=== PATIENT | female | born 1990 | race Hispanic/Latino ===

== ENCOUNTER 2017-03-18 09:41 | Emergency (ER) | payer MEDICAID, OTHER ==
[2017-03-18 09:41] VITALS: BMI 44.1
[2017-03-18 09:58] VITALS: TEMP 98.6
--- NOTE | 2017-03-18 10:22 | ED PDOC ---
Arrival/HPI - General Chief Complaint: Female Genitourinary Time Seen by Provider: 03/18/17 09:53 Historian: Patient - History of Present Illness Narrative History of Present Illness (Text): 03/18/17 10:23 A 26 year old female, whose past medical history includes right ovarian cyst, and metrorrhagia, presents to the emergency department complaining of irregular period, heavy bleeding since 02/18/17 with intermittent feeling of lightheadedness and nausea. Reports blood clots, which have gotten smaller. Patient denies any shortness of breath, chest pain, dyspnea on exertion or any other complaints at this time. MANAGER OF INVESTIGATIONS: Dr Rossi ([place]) Symptom Onset: Sudden Symptom Course: Unchanged Activities at Onset: Rest Context: Home Past Medical History - Provider Review Nursing Documentation Reviewed: Yes - Infectious Disease Hx of Infectious Diseases: None - Tetanus Immunization Tetanus Immunization: Unknown - Past Medical History Past Medical History: No Previous - Cardiac Hx Cardiac Disorders: Yes Hx Hypertension: Yes Hx Pacemaker: No - Neurological Hx Paralysis: No - Hematological/Oncological Hx Blood Transfusions: No - Musculoskeletal/Rheumatological Hx Musculoskeletal Disorders: No - Psychiatric Hx Emotional Abuse: No Hx Physical Abuse: No Hx Substance Use: No - Surgical History Hx Tonsillectomy: Yes - Anesthesia Hx Anesthesia: Yes Hx Anesthesia Reactions: No Hx Malignant Hyperthermia: No - Suicidal Assessment Feels Threatened In Home Enviroment: No Family/Social History - Physician Review Nursing Documentation Reviewed: Yes Family/Social History: No Known Family HX Smoking Status: Never Smoked Hx Alcohol Use: Yes (OCCASIONAL) Hx Substance Use: No Hx Substance Use Treatment: No Allergies/Home Meds Allergies/Adverse Reactions: Allergies sulfamethoxazole [From Bactrim] Allergy (Severe, Verified 03/18/17 09:58) RASH trimethoprim [From Bactrim] Allergy (Severe, Verified 03/18/17 09:58) RASH amoxicillin Allergy (Verified 03/18/17 09:58) ANAPHYLAXIS clarithromycin [From Biaxin] Allergy (Verified 03/18/17 09:58) ANAPHYLAXIS erythromycin base Adverse Reaction (Verified 03/18/17 09:58) ANAPHYLAXIS Penicillins Adverse Reaction (Verified 03/18/17 09:58) ANAPHYLAXIS Home Medications: Home Meds Medication Instructions Recorded Confirmed No Known Home Med 03/18/17 03/18/17 Review of Systems - Physician Review All systems were reviewed & negative as marked: Yes - Review of Systems Constitutional: Other (lightheadedness) Respiratory: absent: SOB Cardiovascular: absent: Chest Pain, LEON Gastrointestinal: Nausea Genitourinary Female: Other (heavy bleeding) Physical Exam - Physical Exam Narrative Physical Exam (Text): 03/18/17 10:21 - Review of Systems Constitutional: Lightheadedness absent: Fatigue, Weight Change, Fevers Eyes: Normal ENT: Normal Respiratory: Normal absent: SOB, Cough, Sputum Cardiovascular: Normal absent: Chest pain, Palpitations, Syncope Gastrointestinal: Nausea absent: Abdominal pain, Diarrhea, Vomiting Genitourinary: Heavy bleeding. absent: Dysuria, Frequency Musculoskeletal: Normal. absent: Arthralgias, Back Pain, Neck Pain Skin: Normal Neurological: Normal absent: Focal Weakness Endocrine: Normal Hemo/Lymphatic: Normal Psychiatric: Normal - Physical exam Patient appears age appropriate, speaking full sentences without difficulty - Systems Exam Head: Present: Atraumatic, Normocephalic Pupils: Present: PERRL Extraocular Muscles: Present: EOMI Conjunctiva: Present: Normal Mouth: Present: Moist Mucous Membranes Neck: Present: Normal Range of Motion. No: MIDLINE TENDERNESS, Paraspinal Tenderness Respiratory/Chest: Present: Clear to Auscultation, Good Air Exchange. No: Respiratory Distress, Accessory Muscle Use, Tachypnic Cardiovascular: Present: Regular Rate and Rhythm, Normal S1, S2, Peripheral Pulses Present. No: Murmurs Abdomen: Present: Normal Bowel Sounds, No: Tenderness, Peritoneal Signs, Rebound, Guarding, Distention Back: Present: Normal Inspection. No: Midline Tenderness, Paraspinal Tenderness Upper Extremity: Present: Normal Inspection. No: Cyanosis, Edema Lower Extremity: Present: Normal Inspection. No: Edema Neurological: Present: GCS=15, Speech Normal, cranial nerves II through XII fully intact with no cerebellar abnormality, neuro-sensory fully intact. No focal neurological deficits. Skin: Present: Warm, Dry, Normal Color. No: Rashes Lymphatic: Present: OX3, NI, NC Psychiatric: Present: Alert, Oriented x 3, Normal Insight, Normal Concentration Vital Signs Reviewed: Yes Vital Signs Temp Pulse Resp BP Pulse Ox 03/18/17 09:54 98.6 F 138 H 20 134/85 97 Temperature: Afebrile Blood Pressure: Normal Pulse: Tachycardic Respiratory Rate: Normal Appearance: Positive for: Well-Appearing, Non-Toxic, Comfortable Pain Distress: None Mental Status: Positive for: Alert and Oriented X 3 Medical Decision Making ED Course and Treatment: 03/18/17 10:19 Impression: A 26 year old female with irregular period and clots. No acute findings on physical exam. Differential Diagnosis included but are not limited to: anemia vs. metrorrhagia Plan: -- labs -- Urinalysis -- Reassess and disposition Prior Visits: Notes and results from previous visits were reviewed. Patient was last seen in the emergency department on 03/13/16 for evaluation of bilateral headache. Progress Notes: 03/18/17 12:08 no acute findings on labs, Hb stable pt states she will set up outpatient f/u with MANAGER OF INVESTIGATIONS pt states she feels comfortable being dc'd home at this time denies cp/sob/leon Pt states she understands to return to the ER right away for new or worsening symptoms or for inability to f/u with PMD or specialist as instructed. Patient states that she fully agrees with and understands discharge instructions. States that she agrees with the plan and disposition. Verbalized and repeated discharge instructions and plan. I have given the patient opportunity to ask any additional questions. 03/18/17 12:18 tachycardia resolved without intervention - Lab Interpretations Lab Results: 03/18/17 10:40 03/18/17 10:40 Lab Results 03/18/17 10:40: Blood Type A NEGATIVE, Antibody Screen Negative, BBK History Checked No verified bt 03/18/17 10:40: Thyroxine (T4) 8.9, Total T3 1.86 H, TSH 3rd Generation 2.34 03/18/17 10:40: Sodium 142, Potassium 4.0, Chloride 99, Carbon Dioxide 29, Anion Gap 18, BUN 9, Creatinine 0.7, Est GFR ( Amer) > 60, Est GFR (Non- Af Amer) > 60, Random Glucose 110, Calcium 9.8, Total Bilirubin 0.5, AST 29, ALT 35, Alkaline Phosphatase 100, Total Protein 8.5 H, Albumin 4.7, Globulin 3.8 , Albumin/Globulin Ratio 1.2 03/18/17 10:40: Urine Color Red, Urine Appearance Cloudy, Urine pH 7.5, Ur Specific Keyes 1.015, Urine Protein 100 H, Urine Glucose (UA) Negative, Urine Ketones Negative, Urine Blood Large H, Urine Nitrate Negative, Urine Bilirubin Negative, Urine Urobilinogen 1.0 H, Ur Leukocyte Esterase Trace H, Urine RBC Tntc, Urine WBC 0 - 2, Ur Epithelial Cells 4 - 5, Urine Bacteria Trace 03/18/17 10:40: PT 10.8, INR 1.00, APTT 29.5 03/18/17 10:40: WBC 9.8, RBC 4.94, Hgb 14.3, Hct 41.8, MCV 84.6, MCH 28.9, MCHC 34.2, RDW 13.5, Plt Count 266, MPV 10.6, Gran % 69.5 H, Lymph % (Auto) 22.7, Sebastian % (Auto) 6.8 H, Eos % (Auto) 0.9 L, Baso % (Auto) 0.1, Gran # 6.78 H, Lymph # 2.2, Sebastian # 0.7 H, Eos # 0.1, Baso # 0.01 I have reviewed the lab results: Yes - Scribe Statement The provider has reviewed the documentation as recorded by the Shayan Bhakta Provider Scribe Attestation: All medical record entries made by the Shayan were at my direction and personally dictated by me. I have reviewed the chart and agree that the record accurately reflects my personal performance of the history, physical exam, medical decision making, and the department course for this patient. I have also personally directed, reviewed, and agree with the discharge instructions and disposition. Disposition/Present on Arrival - Present on Arrival Any Indicators Present on Arrival: No History of DVT/PE: No History of Uncontrolled Diabetes: No Urinary Catheter: No History of Decub. Ulcer: No History Surgical Site Infection Following: None - Disposition Have Diagnosis and Disposition been Completed?: Yes Diagnosis: Vaginal bleeding Disposition: HOME/ ROUTINE Disposition Time: 12:17 Patient Plan: Discharge Patient Problems: Current Active Problems Problem Status Onset Vaginal bleeding Acute Condition: GOOD Discharge Instructions (ExitCare): Dysfunctional Uterine Bleeding (ED) Additional Instructions: PLEASE RETURN TO THE EMERGENCY DEPARTMENT FOR NEW OR WORSENING SYMPTOMS. RETURN RIGHT AWAY IF YOU CANNOT FOLLOW UP WITH YOUR PRIMARY CARE DOCTOR, CLINIC, OR SPECIALIST IN 1-2 DAYS. Referrals: PCP,NO [Primary Care Provider] - Follow up with primary Darrian Conley [Medical Doctor] - Follow up with primary
[2017-03-18 10:52] LABS: BASO # 0.01 K/mm3 (0.0-2.0); BASO % 0.1 % (0.0-3.0); EOS # 0.1 (0.0-0.7); EOS % 0.9 % (1.5-5.0); GRAN # 6.78 (1.4-6.5); GRAN % 69.5 % (50.0-68.0); HEMOGLOBIN 14.3 gm/dL (12.0-16.0); LYMPH # 2.2 (1.2-3.4); LYMPH % 22.7 % (22.0-35.0); MEAN CELL VOLUME 84.6 fL (80.0-105.0); MEAN CORPUSCULAR HEMOGLOBIN 28.9 pg (25.0-35.0); MEAN CORPUSCULAR HGB CONC 34.2 g/dl (31.0-37.0); MEAN PLATELET VOLUME 10.6 fl (7.0-11.0); MONO # 0.7 (0.1-0.6); MONO % 6.8 % (1.0-6.0); PH,URINE 7.5 (4.7-8.0); PLATELET COUNT 266 10^3/uL (120.0-450.0); RBC 4.94 10^6/uL (3.5-6.1); RED CELL DISTRIBUTION WIDTH 13.5 % (11.5-14.5); URINE APPEARANCE CLOUDY (CLEAR); URINE BILIRUBIN NEGATIVE (NEGATIVE); URINE BLOOD LARGE (NEGATIVE); URINE COLOR RED (YELLOW); URINE GLUCOSE (UA) NEGATIVE (NEGATIVE); URINE LEUKOCYTE ESTERASE TRACE Leu/uL (NEGATIVE); URINE NITRATE NEGATIVE (NEGATIVE); URINE PROTEIN 100 mg/dL (<30 mg/dL); WHITE BLOOD COUNT 9.8 10^3/ul (4.5-11.0)
[2017-03-18 11:00] LABS: URINE RBC TNTC /hpf (0-2); URINE WBC 0 - 2 /hpf (0-6)
[2017-03-18 11:01] LABS: ALB/GLOB RATIO 1.2 (1.1-1.8); ALBUMIN 4.7 g/dL (3.0-4.8); ALT/SGPT 35 U/L (7-56); AST/SGOT 29 U/L (15-39); BLOOD UREA NITROGEN 9 mg/dL (7-21); CALCIUM 9.8 mg/dL (8.4-10.5); GFR AFRICAN-AMERICAN > 60; GFR NON-AFRICAN AMERICAN > 60; URINE BACTERIA TRACE (NEG)
[2017-03-18 11:03] LABS: PARTIAL THROMBOPLASTIN TIME 29.5 Seconds (23.7-30.8); PROTHROMBIN TIME 10.8 Seconds (9.9-11.8)
[2017-03-18 11:18] LABS: T4 8.9 ug/dL (5.5-11.0)
[2017-03-18 11:32] LABS: T3 1.86 ng/mL (0.97-1.69)
[2017-03-18 12:13] VITALS: BP 124/89; PULSE 100; RESP 18; O2SAT 98
== END 2017-03-18 12:25 | disposition home or self-care (01) ==
LOC: ED 09:41
DX: N93.9 Abnormal uterine and vaginal bleeding, unspecified (principal)

== ENCOUNTER 2017-04-03 20:22 | Emergency (ER) | payer MEDICAID, OTHER ==
[2017-04-03 20:44] VITALS: BMI 45.3
[2017-04-03] MEDS ORDERED: TDAP Vaccine 0.5 mL Syr IM ONE (21:18)
[2017-04-03] MEDS ORDERED: Lidocaine 1% Inj (20ml) ONE (22:19)
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
[2017-04-04 01:10] VITALS: RESP 18
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
[2017-04-04 01:15] VITALS: BP 136/84; PULSE 88; TEMP 98.5
[2017-04-04 01:24] VITALS: O2SAT 98
--- NOTE | 2017-04-04 02:20 | PCM.PROC ---
Procedures Attestation:: I certify that I have explained the specified Operation(s) or Procedure(s), risks, benefits and reasonable alternatives to the Patient and/or other person responsible. The opportunity was given to ask questions and all questions answered - Laceration other Site: upper extremity Side (if applicable): right Size (cm): 5 Description: linear (linear with L shaped hook at the medial end), flap, irregular, clean Depth: simple, single layer Anesthesia used: lidocaine 1% Anesthesia technique: local infiltration Amount (mLs): 12 Pre-repair: wound explored, irrigated extensively (with normal saline, prepared with betadine swab), deep structures intact Skin layer closed with: other (ethilon) Size: 4-0 Number of sutures: 7 Technique: simple, interrupted Subcutaneous layer closed with: other (monocryl) Size: 4-0 Number of sutures: 5 Technique: simple, interrupted right upper extremity Site: upper extremity Side (if applicable): right Size (cm): 5 Description: flap Depth: simple, single layer Anesthesia used: lidocaine 1% Anesthesia technique: local infiltration Amount (mLs): 12 Pre-repair: wound explored, irrigated extensively, deep structures intact Skin layer closed with: other (ethilon) Size: 4-0 Number of sutures: 8 Technique: simple, interrupted Subcutaneous layer closed with: other (monocryl) Size: 4-0 Number of sutures: 6 Technique: simple, interrupted upper extremity Site: upper extremity Side (if applicable): right Size (cm): 3 Description: linear Depth: simple, single layer Anesthesia used: lidocaine 1% Anesthesia technique: local infiltration Amount (mLs): 10 Pre-repair: wound explored, irrigated extensively, deep structures intact Skin layer closed with: other (ethilon) Size: 4-0 Number of sutures: 4 Technique: simple, interrupted Subcutaneous layer closed with: other (monocryl) Size: 4-0 Number of sutures: 3 Technique: simple, interrupted
--- NOTE | 2017-04-04 09:33 | RAD ---
PROCEDURE: Right Hand Radiographs. HISTORY: laceration, palm/wrist COMPARISON: None. FINDINGS: BONES: Normal. No fracture. JOINTS: Normal. No osteoarthritic changes. SOFT TISSUES: Normal. OTHER FINDINGS: None. IMPRESSION: Normal right hand radiographs.
--- NOTE | 2017-04-04 09:34 | RAD ---
PROCEDURE: Radiographs of the Right Forearm HISTORY: lacerations, forearm with glass COMPARISON: None available. TECHNIQUE: Frontal and lateral views obtained. FINDINGS: BONES: No fracture or destructive lesion. JOINT SPACES: Unremarkable. OTHER FINDINGS: None. IMPRESSION: Unremarkable radiographs of the right forearm.
== END 2017-04-04 01:23 | disposition home or self-care (01) ==
LOC: ED 20:22
DX: S61.411A Laceration without foreign body of right hand, initial encounter (principal); S61.511A Laceration without foreign body of right wrist, initial encounter; W25.XXXA Contact with sharp glass, initial encounter; Z23 Encounter for immunization

== ENCOUNTER 2017-06-07 12:48 | Emergency (ER) | payer MEDICAID, OTHER ==
[2017-06-07 12:57] VITALS: BMI 44.1
[2017-06-07 13:18] VITALS: RESP 18
--- NOTE | 2017-06-07 13:32 | ED PDOC ---
Arrival/HPI - General Chief Complaint: Allergic Reaction Time Seen by Provider: 06/07/17 13:08 Historian: Patient - History of Present Illness Narrative History of Present Illness (Text): 06/07/17 13:26 A 27 year old female with no significant past medical history, presents to the emergency department with facial swelling this morning when she woke up. She says she did start to experience some tightness in the throat. The patient states that she took Benadryl and Tylenol for her symptoms and feels better. The swelling is much better and no longer has any itching or tightness in the throat. She notes that she has not eaten anything new or used any new products. The patient's mother states that about 2 weeks ago, the patient started to break out in a rash and she went to visit her old [employer] (Dr. Miller) and was given medication. They followed- up 2 days ago and the doctor told the patient that she had Coxsackie virus. The patient currently denies denies fevers, chills, headache, dizziness, sore throat, cough, chest pain, shortness of breath, dyspnea on exertion, abdominal pain, nausea, vomiting, diarrhea, neck pain, back pain, urinary/bowel changes, or any other complaints. Time/Duration: Other (This Morning) Symptom Onset: Sudden Symptom Course: Improving Activities at Onset: Rest, Light Context: Home Past Medical History - Provider Review Nursing Documentation Reviewed: Yes - Infectious Disease Hx of Infectious Diseases: None - Tetanus Immunization Tetanus Immunization: Unknown - Reproductive Menopause: No - Past Medical History Past Medical History: No Previous - Cardiac Hx Cardiac Disorders: Yes Hx Hypertension: Yes Hx Pacemaker: No - Pulmonary Hx Respiratory Disorders: No - Neurological Hx Paralysis: No - HEENT Hx HEENT Disorder: No - Renal Hx Renal Disorder: No - Endocrine/Metabolic Hx Endocrine Disorders: No - Hematological/Oncological Hx Blood Transfusions: No - Integumentary Hx Dermatological Disorder: No - Musculoskeletal/Rheumatological Hx Musculoskeletal Disorders: No - Gastrointestinal Hx Gastrointestinal Disorders: No - Genitourinary/Gynecological Hx Genitourinary Disorders: No - Psychiatric Hx Emotional Abuse: No Hx Physical Abuse: No Hx Substance Use: No - Surgical History Hx Tonsillectomy: Yes - Anesthesia Hx Anesthesia: Yes Hx Anesthesia Reactions: No Hx Malignant Hyperthermia: No - Suicidal Assessment Feels Threatened In Home Enviroment: No Family/Social History - Physician Review Nursing Documentation Reviewed: Yes Family/Social History: No Known Family HX Smoking Status: Never Smoked Hx Alcohol Use: Yes (OCCASIONAL) Hx Substance Use: No Hx Substance Use Treatment: No Allergies/Home Meds Allergies/Adverse Reactions: Allergies sulfamethoxazole [From Bactrim] Allergy (Severe, Verified 06/07/17 12:58) RASH trimethoprim [From Bactrim] Allergy (Severe, Verified 06/07/17 12:58) RASH amoxicillin Allergy (Verified 06/07/17 12:58) ANAPHYLAXIS clarithromycin [From Biaxin] Allergy (Verified 06/07/17 12:58) ANAPHYLAXIS erythromycin base Adverse Reaction (Verified 06/07/17 12:58) ANAPHYLAXIS Penicillins Adverse Reaction (Verified 06/07/17 12:58) ANAPHYLAXIS Review of Systems - Physician Review All systems were reviewed & negative as marked: Yes - Review of Systems Constitutional: absent: Fevers, Night Sweats ENT: Other (throat tightness earlier, resolved). absent: Sore Throat Respiratory: absent: SOB, Cough Cardiovascular: absent: Chest Pain, GARNETT Gastrointestinal: absent: Abdominal Pain, Stool Changes, Diarrhea, Nausea, Vomiting Genitourinary Female: absent: Urine Output Changes Musculoskeletal: absent: Back Pain, Neck Pain Skin: Rash, Pruritis, Other (Swelling/ Itchiness of the face) Neurological: absent: Headache, Dizziness Physical Exam Vital Signs Reviewed: Yes Vital Signs Temp Pulse Resp BP Pulse Ox 06/07/17 12:58 98.6 F 108 H 18 132/106 H 99 Temperature: Afebrile Blood Pressure: Hypertensive Pulse: Tachycardic Respiratory Rate: Normal Appearance: Positive for: Well-Appearing, Non-Toxic, Comfortable Pain Distress: None Mental Status: Positive for: Alert and Oriented X 3 - Systems Exam Head: Present: Atraumatic, Swelling (Minimal swelling with blanching erythema on the cheeks b/L; no tenderness) Pupils: Present: PERRL Conjunctiva: Present: Normal Mouth: Present: Moist Mucous Membranes Pharnyx: Present: Normal. No: ERYTHEMA, EXUDATE Neck: Present: Normal Range of Motion Respiratory/Chest: Present: Clear to Auscultation, Good Air Exchange. No: Respiratory Distress, Accessory Muscle Use Cardiovascular: Present: Regular Rate and Rhythm, Normal S1, S2. No: Murmurs Abdomen: Present: Normal Bowel Sounds. No: Tenderness, Distention, Peritoneal Signs Back: Present: Normal Inspection Upper Extremity: Present: Normal Inspection. No: Cyanosis, Edema Lower Extremity: Present: Normal Inspection. No: Edema Neurological: Present: GCS=15, CN II-XII Intact, Speech Normal Skin: Present: Warm, Dry, Rashes, Normal Color Psychiatric: Present: Alert, Oriented x 3, Normal Insight, Normal Concentration Medical Decision Making ED Course and Treatment: 06/07/17 13:34 Impression: A 27 year old female presents to the emergency department after waking up this morning and having itching, swelling and erythema to the face with significant improvement after benadryl. Plan: -- Pepcid, Atarax, and predniSONE -- Reassess and disposition Prior Visits: Notes and results from previous visits were reviewed. On 04/03/17, the patient was treated in the emergency department for multiple lacerations to the right hand and wrist. The patient was d/c home on [facility] with referrals to Dr. Reed Gregg and Dr. Sergio Farah. Progress Notes: 06/07/17 13:44 Patient still mild erythematous rash, likely allergic. She no longer has tightness in the throat and oropharyngeal exam is normal with no swelling. Given swelling in the throat - will give steroids and plan to d/c on antihistamine, steroids, and epi-pen. - Medication Orders Current Medication Orders: Discontinued Medications Famotidine (Pepcid) 40 mg PO STAT STA Stop: 06/07/17 13:28 Last Admin: 06/07/17 13:40 Dose: 40 mg Hydroxyzine HCl (Atarax) 25 mg PO ONCE STA Stop: 06/07/17 13:28 Prednisone (Prednisone Tab) 40 mg PO STAT STA Stop: 06/07/17 13:28 Last Admin: 06/07/17 13:40 Dose: 40 mg - Scribe Statement The provider has reviewed the documentation as recorded by the Shayan Weston Provider Scribe Attestation: All medical record entries made by the Scribe were at my direction and personally dictated by me. I have reviewed the chart and agree that the record accurately reflects my personal performance of the history, physical exam, medical decision making, and the department course for this patient. I have also personally directed, reviewed, and agree with the discharge instructions and disposition. Disposition/Present on Arrival - Present on Arrival Any Indicators Present on Arrival: No History of DVT/PE: No History of Uncontrolled Diabetes: No Urinary Catheter: No History of Decub. Ulcer: No History Surgical Site Infection Following: None - Disposition Have Diagnosis and Disposition been Completed?: Yes Diagnosis: Allergic reaction Disposition: HOME/ ROUTINE Disposition Time: 13:50 Patient Plan: Discharge Patient Problems: Current Active Problems Problem Status Onset Allergic reaction Acute Condition: GOOD Discharge Instructions (ExitCare): Anaphylaxis (ED) Additional Instructions: Take the medications as prescribed and follow up with customer service rep and primary care. Return to the emergency department if any new concerning symptoms. Prescriptions: Epinephrine HCl [Epipen Auto-Injector] 0.3 mg MR ONCE PRN #2 syr PRN Reason: Anaphylaxis hydrOXYzine HCl [Atarax] 1 tab PO Q6H PRN #20 tab PRN Reason: Rash predniSONE [Prednisone] 2 tab PO DAILY #8 tab Ranitidine HCl [Zantac] 1 tab PO BID #10 tablet Referrals: Everton Sharma MD [Medical Doctor] - Follow up with primary Roger Smith MD [Staff Provider] - Follow up with primary Forms: [employer] ([place])
[2017-06-07 14:04] VITALS: BP 130/82; PULSE 88; TEMP 98.7; O2SAT 100
== END 2017-06-07 14:02 | disposition home or self-care (01) ==
LOC: ED 12:48
DX: T78.40XA Allergy, unspecified, initial encounter (principal); X58.XXXA Exposure to other specified factors, initial encounter